=== PATIENT | female | born 2000 | race Caucasian/White ===

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

== ENCOUNTER 2019-02-09 13:05 | Emergency (ER) | payer OTHER ==
[~2019-02-09] VITALS: Ht 160 cm; Wt 72.3 kg
[~2019-02-09 13:05] MED LIST changes: +CEPH-443 PO; +HYDR-4011 PO; -HYDR-906 PO; +NAPR-985 PO
[2019-02-09 13:24] VITALS: BP 138/63; PULSE 59; RESP 18; Ht 160 cm; Wt 72.3 kg
[2019-02-09] MEDS ORDERED: LORAZEPAM 1 MG TAB PO ONE (14:00)
[2019-02-09] MEDS ORDERED: LORA1TAB PO (15:13)
--- NOTE | 2019-02-09 15:54 | ERD ---
ER Documentation Chief Complaint Chief Complaint sob, anxiety starting 5 days; wound check to the abdomen HPI History of Present Illness: 18-year-old female with no past medical history com ing in today with complaint of episode of shortness of breath, feeling anxious, dizzy, near syncopal, nausea lasting patient also reporting less than 3 minutes. Lightheadedness, numbness and tingling in all extremities during these episodes. patient reports episodes been having 3-4 times a day. Patient reports argument approximately 5 days ago with a family member in which she has been having these episodes of "anxiety". At home pharmacological/nonpharmacological treatment for symptoms: denies Denies social concerns; Denies recent foreign travel ROS All systems reviewed and are negative except as per history of present illness. Medications Home Meds Active Scripts Lorazepam* (Lorazepam*) 1 Mg Tablet, 0.5 MG PO BID PRN for ANXIETY, #10 TAB Prov:BROOKS AGUSTIN V SUPERVISOR YARD 02/09/19 Naproxen* (Naprosyn*) 500 Mg Tablet, 500 MG PO BID PRN for PAIN AND/OR INFLAMMATION, #30 TAB Prov:STEPHON TERRAZAS PA-C 03/05/17 Cephalexin* (Keflex*) 500 Mg Capsule, 500 MG PO QID for 10 Days, CAP Prov:STEPHON TERRAZAS PA-C 03/05/17 Cephalexin* (Cephalexin*) 500 Mg Capsule, 500 MG PO BID, #14 CAP Prov:ALBERTO JONES PA-C 01/02/17 Hydrocodone/Acetaminophen ([place] 5-325 Tablet) 1 Each Tablet, 1 TAB PO Q6H PRN for PAIN, #20 TAB Prov:ALBERTO JONES PA-C 01/02/17 Ibuprofen* (Motrin*) 600 Mg Tab, 600 MG PO Q6, #30 TAB Prov:ALBERTO JONES PA-C 01/02/17 Allergies Allergies: Coded Allergies: No Known Allergy (Unverified , 01/03/14) PMhx/Soc Medical and Surgical Hx: pt denies Medical Hx, pt denies Surgical Hx Hx Miscellaneous Medical Probl: Yes (UTIs) Hx Alcohol Use: No Hx Substance Use: No Hx Tobacco Use: No Smoking Status: Never smoker FmHx Family History: diabetes; No coronary disease Physical Exam Vitals Vital Signs Date Temp Pulse Resp B/P (MAP) Pulse Ox O2 O2 Flow FiO2 Time Delivery Rate 02/09/19 97.5 59 18 138/63 98 13:24 (88) Physical Exam Const: No acute distress Head: Atraumatic Eyes: Normal Conjunctiva ENT: Normal External Ears, Nose and Mouth. Neck: Full range of motion. No meningismus. Resp: Clear to auscultation bilaterally Cardio: Regular rhythm, heart rate 57, no murmurs Abd: Soft, non tender, non distended. Normal bowel sounds Skin: No petechiae or rashes Back: No midline or flank tenderness Ext: No cyanosis, or edema Neur: Awake and alert Psych: Normal Mood and Affect Results 24 hrs Current Medications Medications Dose Sig/Jose Francisco Start Time Status Last (Trade) Ordered Route PRN Stop Time Admin Dose Reason Admin Lorazepam 1 mg ONCE ONCE 02/09/19 DC 02/09/19 (Ativan) PO 14:00 14:07 02/09/19 14:01 Procedures/MDM ED course includes a thorough examination and history. Medications: Ativan Imaging: EKG Labs: -- Low suspicion for life-threatening medical emergency. Low Suspicion for cardiac emergency that requires hospitalization or immediate surgical intervention. Otherwise healthy patient presenting with constellation of symptoms likely representing anxiety due to stress at home as characterized by history, physical exam findings, EKG findings. EKG: Rate/Rhythm: Sinus bradycardia rhythm, WITH PAC, ventricular rate 52 QRS, ST, T-waves: No changes consistent w/ acute ischemia Impression: No evidence of ischemia or arrhythmia No respiratory distress, otherwise relatively well appearing and nontoxic. Patient without any episodes of anxiety attack during ER visit. Patient is asymptomatic at time of discharge. Disposition given. Patient hemodynamically stable. Patient denies any type of chest pain, shortness of breath, palpitations. Patient educated on diagnoses, prescriptions, follow-up care, return precautions. Strict return precautions given for worsening condition; questions answered discharge. Disposition for discharge with followup in 2 days with PCP/clinic. Departure Diagnosis: Primary Impression: Stress due to family tension Additional Impression: Anxiety Condition: Stable Patient Instructions: Your Body's Response to Anxiety Additional Instructions: Thank you very much for allowing us to participate in your care. Your health and safety is our top priority at [facility]. It is important to read all discharge instructions and education provided in your discharge packet. *Is very important follow-up with your primary care doctor for possible referral to a counseling/therapist to help you deal with the stressors that you are experiencing at home.* Call your primary care doctor TOMORROW for an appointment during the next 2-4 days and bring all the information and medications prescribed. Have prescriptions filled and follow precisely the directions on the label. -Ativan as a medication that will help with anxiety. This medication may cause drowsiness. Do not operate heavy machinery after taking this medication. If the symptoms get worse and your provider is unavailable, return to the Emergency Department immediately. BROOKS AGUSTIN NP Feb 09, 2019 15:54
== END 2019-02-09 15:31 | disposition home or self-care (01) ==
LOC: FTE 13:05
DX: F41.9 Anxiety disorder, unspecified (principal); Z63.8 Other specified problems related to primary support group
CPT/HCPCS: 93005; Z7502; Z7610

== ENCOUNTER 2019-03-21 07:08 | Emergency (ER) | payer OTHER ==
[~2019-03-21] VITALS: Ht 160 cm; Wt 72.3 kg
[~2019-03-21 07:08] MED LIST changes: +LORA1TAB PO
[2019-03-21 07:12] VITALS: BP 120/69; PULSE 62; RESP 16; Ht 160 cm; Wt 72.3 kg
[2019-03-21] MEDS ORDERED: MUPI22OI2 TOP (07:38)
[2019-03-21] MEDS ORDERED: BEN25 PO (07:38)
--- NOTE | 2019-03-21 07:47 | ERD ---
ER Documentation Chief Complaint Chief Complaint "BUG BITES" NOTED ON BILATERAL LOWER LEGS HPI This is a 18-year-old female presents ED with dog bite on right lower extremity and bug bite on left lower extremity x2 days. Patient admits to itching. Denies fevers, chills, pain, swelling, tenderness palpation and all other symptoms. ROS All systems reviewed and are negative except as per history of present illness. Medications Home Meds Active Scripts Diphenhydramine Hcl* (Benadryl*) 25 Mg Cap, 25 MG PO Q6 PRN for ITCHING/RASH, #30 TAB Prov:TANO VAZQUEZ PA-C 03/21/19 Mupirocin* (Bactroban*) 2% -22 Gram Oint...g., 1 APPLIC TOP BID for 7 Days, EA Prov:TANO VAZQUEZ PA-C 03/21/19 Lorazepam* (Lorazepam*) 1 Mg Tablet, 0.5 MG PO BID PRN for ANXIETY, #10 TAB Prov:BROOKS AGUSTIN NP 02/09/19 Naproxen* (Naprosyn*) 500 Mg Tablet, 500 MG PO BID PRN for PAIN AND/OR INFLAMMATION, #30 TAB Prov:STEPHON TERRAZAS PA-C 03/05/17 Cephalexin* (Keflex*) 500 Mg Capsule, 500 MG PO QID for 10 Days, CAP Prov:STEPHON TERRAZAS PA-C 03/05/17 Cephalexin* (Cephalexin*) 500 Mg Capsule, 500 MG PO BID, #14 CAP Prov:ALBERTO JONES PA-C 01/02/17 Hydrocodone/Acetaminophen ([place] 5-325 Tablet) 1 Each Tablet, 1 TAB PO Q6H PRN for PAIN, #20 TAB Prov:ALBERTO JONES PA-C 01/02/17 Ibuprofen* (Motrin*) 600 Mg Tab, 600 MG PO Q6, #30 TAB Prov:ALBERTO JONES PA-C 01/02/17 Allergies Allergies: Coded Allergies: No Known Allergy (Unverified , 01/03/14) PMhx/Soc Hx Miscellaneous Medical Probl: Yes (UTIs) Hx Alcohol Use: No Hx Substance Use: No Hx Tobacco Use: No Physical Exam Vitals Vital Signs Date Temp Pulse Resp B/P (MAP) Pulse Ox O2 O2 Flow FiO2 Time Delivery Rate 03/21/19 97.9 62 16 120/69 98 07:12 (86) Physical Exam Physical Exam Vitals signs: Reviewed by me. General: Well developed, well nourished, in no acute distress. Patient is awake and alert. Head: Normocephalic, atraumatic. Neurologic: Alert and oriented, moving all extremities, normal speech, no focal weakness, no cerebellar signs. Normal mentation Skin: Erythematous excoriated insect bites located on patient's right lower extremity and left lower extremity, there is faint redness surrounding the insect bites but there is no swelling, tenderness to palpation, warmth or lymphatic streaking Psych: Normal mood Procedures/MDM ER COURSE: The patient was stable throughout ED course. I kept the patient and/or family informed of laboratory and diagnostic imaging results throughout the emergency room course. The patient was promptly evaluated and a treatment plan was devised based on H&P and other data. This plan was discussed with the patient who agreed and had no further questions or concerns prior to discharge. MEDICAL DECISION MAKIN-year-old female presents ED with bug bite to left lower extremity right lower extremity. At this time there is no evidence of cellulitis. Will give patient a topical antibiotic ointment to use on the bug bites and also recommended taking Benadryl for itching. There is no lymphatic streaking. There is no fluctuant mass or abscess to be drained. Low suspicion for deep space i nfection, compartment syndrome, abscess, sepsis, neurovascular injury, tendon injury. Patient's vitals are stable and pt can be managed with close outpatient follow-up. Advised patient follow-up with primary care in the next 48 hours. Advised to return to ED with any worsening symptoms. DISPOSITION PLAN: We discussed follow up with the patient's primary care doctor within 24 to 48 hours. Patient counseled regarding my diagnostic impression and care plan. Prior to discharge all questions answered. Pt agrees with treatment plan and understands strict return precautions. Precautionary instructions provided including instructions to return to the ER if not improving or for any worsening or changing symptoms or concerns. ExitCare instructions provided. Prior to discharge, patients vital signs have been reviewed SPECIALIST FOLLOW UP RECOMMENDED: None Patient has been advised to follow up with primary care in 1-2 days. Disclaimer: Inadvertent spelling and grammatical errors are likely due to EHR/dictation software use and do not reflect on the overall quality of patient care. Also, please note that the electronic time recorded on this note does not necessarily reflect the actual time of the patient encounter. Departure Diagnosis: Primary Impression: Insect bites Encounter type: initial encounter Site of insect bite: lower leg Laterality: unspecified laterality Qualified Codes: S80.869A - Insect bite (nonvenomous), unspecified lower leg, initial encounter; W57.XXXA - Bitten or stung by nonvenomous insect and other nonvenomous arthropods, initial encounter Condition: Stable Patient Instructions: Insect Bites and Stings Additional Instructions: Patient advised to return to the ED immediately for new or worsening symptoms. Patient advised to follow up with primary care provider in the next 24-48 hours. Patient verbalized understanding and agrees with treatment plan and course of action. If patient has no primary care they may follow up with one of the community clinics listed on the following page or one of the options listed below [facility] + [address] [address] or [facility] [id number] [place] [id number] or [facility] [address] [place] [address] TANO VAZQUEZ PA-C Mar 21, 2019 07:47
== END 2019-03-21 08:03 | disposition home or self-care (01) ==
LOC: FTE 07:08
DX: S80.861A Insect bite (nonvenomous), right lower leg, initial encounter (principal); S80.862A Insect bite (nonvenomous), left lower leg, initial encounter; W57.XXXA Bitten or stung by nonvenomous insect and other nonvenomous arthropods, initial encounter; Y92.9 Unspecified place or not applicable
CPT/HCPCS: 99283

== ENCOUNTER 2019-04-05 16:10 | Emergency (ER) | payer OTHER ==
[~2019-04-05] VITALS: Ht 162.6 cm; Wt 74.0 kg
[~2019-04-05 16:10] MED LIST changes: +BEN25 PO; +MUPI22OI2 TOP
[2019-04-05 16:18] VITALS: BP 111/65; PULSE 76; RESP 18; Ht 162.6 cm; Wt 74.0 kg
[2019-04-05] MEDS ORDERED: CEPH-443 PO (16:31)
--- NOTE | 2019-04-05 16:33 | ERD ---
ER Documentation Chief Complaint Chief Complaint right arm swelling and redness since yesterday HPI This is a 18-year-old female who presents with an area of redness and swelling to her right forearm that she first noticed yesterday. He thinks it may be from an insect bite. The area is now painful and red swollen and warm to touch. No fevers. ROS All systems reviewed and are negative except as per history of present illness. Medications Home Meds Active Scripts Cephalexin* (Keflex*) 500 Mg Capsule, 500 MG PO QID for 7 Days, CAP Prov:ALBERTO JONES PA-C 04/05/19 Diphenhydramine Hcl* (Benadryl*) 25 Mg Cap, 25 MG PO Q6 PRN for ITCHING/RASH, #30 TAB Prov:TANO VAZQUEZ PA-C 03/21/19 Mupirocin* (Bactroban*) 2% -22 Gram Oint...g., 1 APPLIC TOP BID for 7 Days, EA Prov:TANO VAZQUEZ PA-C 03/21/19 Lorazepam* (Lorazepam*) 1 Mg Tablet, 0.5 MG PO BID PRN for ANXIETY, #10 TAB Prov:BROOKS AGUSTIN NP 02/09/19 Naproxen* (Naprosyn*) 500 Mg Tablet, 500 MG PO BID PRN for PAIN AND/OR INFLAMMATION, #30 TAB Prov:STEPHON TERRAZAS PA-C 03/05/17 Cephalexin* (Keflex*) 500 Mg Capsule, 500 MG PO QID for 10 Days, CAP Prov:STEPHON TERRAZAS PA-C 03/05/17 Cephalexin* (Cephalexin*) 500 Mg Capsule, 500 MG PO BID, #14 CAP Prov:ALBERTO JONES PA-C 01/02/17 Hydrocodone/Acetaminophen ([place] 5-325 Tablet) 1 Each Tablet, 1 TAB PO Q6H PRN for PAIN, #20 TAB Prov:ALBERTO JONES PA-C 01/02/17 Ibuprofen* (Motrin*) 600 Mg Tab, 600 MG PO Q6, #30 TAB Prov:ALBERTO JONES PA-C 01/02/17 Allergies Allergies: Coded Allergies: No Known Allergy (Unverified , 01/03/14) PMhx/Soc Hx Miscellaneous Medical Probl: Yes (UTIs) Hx Alcohol Use: No Hx Substance Use: No Hx Tobacco Use: No FmHx Family History: No diabetes Physical Exam Vitals Vital Signs Date Temp Pulse Resp B/P (MAP) Pulse Ox O2 O2 Flow FiO2 Time Delivery Rate 04/05/19 98.4 76 18 111/65 100 16:18 (80) Physical Exam Const: No acute distress Head: Atraumatic Eyes: Normal Conjunctiva ENT: Normal External Ears, Nose and Mouth. Neck: Full range of motion. No meningismus. Resp: Clear to auscultation bilaterally Cardio: Regular rate and rhythm, no murmurs Skin: Right upper extremity on the forearm there is an area of erythema with induration of the skin and warmth approximately 3 cm in diameter Procedures/MDM Patient has cellulitis on the right arm likely from insect bite. Well-appearing with normal vital signs. Prescription for Keflex given. Patient counseled regarding my diagnostic impression and care plan. Prior to discharge all questions answered. Pt agrees with treatment plan and understands strict return precautions. Pt is instructed to follow up with primary care provider within 24- 48 hours. Precautionary instructions provided including instructions to return to the ER if not improving or for any worsening or changing symptoms or concerns. Departure Diagnosis: Primary Impression: Cellulitis Condition: Stable Patient Instructions: Cellulitis Additional Instructions: Call your primary care doctor TOMORROW for an appointment during the next 1-2 da ys.See the doctor sooner or return here if your condition worsens before your appointment time. ALBERTO JONES PA-C Apr 05, 2019 16:33
== END 2019-04-05 16:49 | disposition home or self-care (01) ==
LOC: FTE 16:10
DX: L03.113 Cellulitis of right upper limb (principal)
CPT/HCPCS: 99283